=== PATIENT | female | born 1970 | race Caucasian/White ===

== ENCOUNTER 2020-11-29 08:44 | Day surgery (SDC) | payer BC ==
[2020-09-29 10:27] VITALS: BMI 23.9
[~2020-11-29 08:44] MED LIST: LACTATED RINGERS 1,000 ML IV SCH
[2020-11-29 09:35] VITALS: RESP 16; TEMP 97
[2020-11-29] MEDS ORDERED: fentaNYL (PF) 50 MCG/ML 2 ML AMP ONE (10:12)
[2020-11-29] MEDS ORDERED: MIDAZOLAM 2 MG/2 ML VIAL ONE (10:12)
[2020-11-29] MEDS ORDERED: PROPOFOL 10 MG/ML 20 ML VIAL IV ONE (10:12)
--- NOTE | 2020-11-29 10:37 | P.PCN ---
Date of Procedure: 11/29/20 Procedure(s) Performed: BRIEF HISTORY: Patient is a 50-year-old pleasant female scheduled for an elective colonoscopy as a part of evaluation of lower abdominal pain, change in bowel habits and intermittent rectal bleeding. PROCEDURE PERFORMED: Colonoscopy with snare polypectomy. PREOPERATIVE DIAGNOSIS:Change in bowel habits and intermittent rectal bleeding. IV sedation per Anesthesia. PROCEDURE: After informed consent was obtained, the patient, was brought into the endoscopy unit. IV sedation was administered by Anesthesia under continuous monitoring. Digital rectal examination was normal. Initially the Olympus CF-160 flexible video colonoscope was then inserted in the rectum, gradually advanced into the cecum without any difficulty. Careful examination was performed as the scope was gradually being withdrawn. Ileocecal valve and the appendiceal orifice were visualized and appeared normal. Prep was excellent. Mucosa of the cecum, ascending colon, transverse colon, descending colon, appeared normal. Scattered left-sided diverticulosis seen. Mucosa of the sigmoid colon, and rectum appeared normal In the distal rectum there was a 7 mm polyp that was removed by snare polypectomy. Retroflexion was performed in the rectum and small internal hemorrhoids ere seen. The patient tolerated the procedure well. IMPRESSION: 7 mm rectal polyp status post polypectomy Scattered left-sided diverticulosis Small internal hemorrhoids RECOMMENDATIONS: Findings of this examination were discussed with the patient as well as her family. She was advised to follow with the biopsy results. If the biopsy shows an adenoma she can have a repeat colonoscopy in 5years. .
[2020-11-29 11:06] VITALS: BP 133/90; PULSE 69
== END 2020-11-29 11:28 | disposition home or self-care (01) ==
LOC: ORWHC2ENDO 08:44
PROVIDERS: ATTEND Internal Medicine Gastroenterology
DX: D12.8 Benign neoplasm of rectum (principal); K57.30 Diverticulosis of large intestine without perforation or abscess without bleeding; K64.8 Other hemorrhoids; Z88.1 Allergy status to other antibiotic agents; Z88.0 Allergy status to penicillin
CPT/HCPCS: 88305; 45385; J2250; J3010; J2704

== ENCOUNTER 2024-01-23 05:59 | Day surgery (SDC) | payer BC ==
[2024-01-20 12:32] VITALS: BMI 24.7
[~2024-01-23 05:59] MED LIST changes: +HYDROmorphone 0.5 MG/0.5 ML SYRINGE IVP PRN; -LACTATED RINGERS 1,000 ML IV SCH; +LIDOCAINE 1% (10MG/ML) FOR IV START INTRADERMA PRN; +MIDAZOLAM 2 MG/2 ML VIAL IV PRN
[2024-01-23] MEDS: LACTATED RINGERS 1,000 ML IV SCH (07:05)
[2024-01-23] MEDS: DEXAMETHASONE SOD PHOSPHATE 4 MG/ML 1 ML VIAL IV ONE (07:09)
[2024-01-23] MEDS: MIDAZOLAM 2 MG/2 ML VIAL IVP ONE (07:10)
[2024-01-23] MEDS: ONDANSETRON 4 MG/2 ML VIAL IVP ONE (07:10)
[2024-01-23] MEDS ORDERED: PROPOFOL 10 MG/ML 20 ML VIAL IV ONE (07:25)
[2024-01-23] MEDS ORDERED: fentaNYL (PF) 50 MCG/ML 2 ML AMP ONE (07:25)
[2024-01-23] MEDS ORDERED: LIDOCAINE 1% INJ 10MG/ML (20 ML MDV) ONE (07:25)
[2024-01-23] MEDS: BUPIVACAINE (PF) 0.25% 30 ML VIAL SQ ONE ×2 (07:50)
--- NOTE | 2024-01-23 08:47 | P.OP ---
Date of Procedure: 01/23/24 Preoperative Diagnosis: Hallux rigidus left foot Postoperative Diagnosis: Same Procedure(s) Performed: First metatarsal phalangeal joint implant arthroplasty left foot Implants: Arthrosurface 2.5 mm x 4.5 mm offset first metatarsal head implant Anesthesia: GETA Surgeon: William Nogueira Estimated Blood Loss (ml): 2 Pathology: none sent Condition: stable Disposition: PACU Description of Procedure: The patient was brought into the operating room and placed on table supine position. Timeout was taken to confirm correct patient identifiers, correct laterally of surgery, and correct procedure. When all staff in the room were in agreement the timeout, the patient was induced and placed under general anesthesia. A well-padded tourniquet was placed on the ankle and then 20 mL of 0.25% Marcaine was injected as an ankle block. The foot was then prepped and draped in the usual manner. The foot was exsanguinated and the tourniquet inflated to 250 mmHg. Attention was directed over the dorsomedial aspect of the first metatarsal phalangeal joint, where a linear incision was made between the long extensor tendon and the neurovascular structures. The incision was deepened down to the subcutaneous tissue careful to identify, avoid, and retract any neurovascular structures and cauterize any bleeding vessels. Blunt dissection was then carried down to the periosteum and capsule around the first metatarsal phalangeal joint. A linear periosteal and capsular incision was made medial to the extensor tendon. The periosteal and capsular tissues were reflected from the osseous attachments of the first metatarsal head and base of the proximal phalanx. Visual inspection of the articular surface of the first metatarsal head showed greater than 50% full-thickness erosion of the articular cartilage and thinning of the remainder cartilage with fraying on the plantar aspect. A sagittal saw was used to resect the osteophytes of the dorsal aspect of the first metatarsal head but not aggressively so I did not disrupt the bony foundation for the implant placement. Guidewires placed in the central aspect of the first metatarsal head and, under fluoroscopy, guided in the first metatarsal shaft parallel to the long axis. Once the pin was properly p ositioned the reamer was inserted and taken down to proper depth. The tap was inserted and taken down to the laser line when aligned up with the articular cartilage surface. Then the implant was inserted it was taken down to the laser line at the articular surface and then advanced 1 additional millimeter for decompression. The reamer was placed over the guidewire and then activated and advanced until it stopped on the implant. The trial was placed and showed proper fit. There was increased range of motion the first metatarsal phalangeal joint. The sesamoid apparatus glided normally with dorsiflexion of the first metatarsal phalangeal joint. With the trial implants still in place the excessive bone medially laterally and plantarly was resected carefully so as not to disrupt the shelf of bone with the implant would sit. Once completed the trial was removed and the area thoroughly irrigated with antibiotic saline. The final joint implant was then positioned and seated into the anchor. The implant size was 2.5 mm x 4.5 mm offset. The implant was impacted into place. Fluoroscopy was then taken that show the implant properly aligned. A lateral view was also done with the first metatarsal phalangeal joint maximally dorsiflexed to show how much motion was available. The wound is then thoroughly irrigated with antibiotic saline. The capsule was repaired with 0 Vicryl. S ubcu closure was done with 3-0 Monocryl. And skin closure was done with 4-0 Stratafix in a running subcuticular manner. Dermal glue was placed over the incision and allowed to dry. Steri-Strips were then applied across incision. An Arthrex jumpstart dressing was applied over the incision and then a dry sterile dressing applied to the foot. The tourniquet was released and capillary refill return to all digits on the left foot. The patient tolerated the above procedure and anesthesia well. Patient left the operating room to recovery with vital signs stable
[2024-01-23 08:56] VITALS: TEMP 97.5
[2024-01-23] MEDS ORDERED: HYDROcodone/APAP 5-325MG 1 EACH TAB ONE (09:29)
[2024-01-23] MEDS: HYDROcodone/APAP 5-325MG 1 EACH TAB PO ONE (09:35)
[2024-01-23 10:43] VITALS: BP 133/80; PULSE 80; RESP 17
== END 2024-01-23 10:30 | disposition home or self-care (01) ==
LOC: OR 05:59
PROVIDERS: ATTEND Podiatrist
DX: M20.22 Hallux rigidus, left foot (principal); K21.9 Gastro-esophageal reflux disease without esophagitis; Z79.899 Other long term (current) drug therapy; Z88.8 Allergy status to other drugs, medicaments and biological substances
CPT/HCPCS: 28291; C1776; J2250; J1100; J0690; J2405; J2001; J3010; J2704; J0665